=== PATIENT | female | born 1960 | race Two or more races ===

== ENCOUNTER → 2017-06-28 | Day surgery (SDC) | payer OTHER ==
[~2017-06-28] VITALS: Ht 152.4 cm; Wt 86.2 kg
[~2017-06-28] MED LIST: 0.9% Sodium Chloride 1,000 ML IV SCH; AMMO1SOL2 MC; CA C1TAB83 PO; DOCU250C2 PO; ESTR1TAB24 PO; ETOD200C4 PO; FERR325T40 PO; FLAX100038 PO; GABA-502 PO; LISI10TA PO; LOVA40TA PO; Lactated Ringer's 1,000 ML IV ONE; Lactated Ringer's 1,000 ML IV SCH; METR55GE TOP; MULT-1065 PO; MetoCLOpramide 5 mg/mL 2 mL Inj IVPUSH PRN; OMEG-38 PO; Ondansetron 2 mg/mL 2 mL Inj IVPUSH PRN; PROP5POW MC; QUET50TA55 PO; SERT100T9 PO; Sodium Chloride LOK Flush 10 mL Syringe IV PRN; THYR90TA PO; ZLP5T PO
[2017-06-28 12:55] VITALS: BP 160/69; PULSE 79; RESP 16; O2SAT 94
[2017-06-28] MEDS: Lactated Ringer's 1,000 ML IV ONE ×2 (14:10→14:36)
[2017-06-28 14:41] VITALS: BP 119/58; PULSE 81; RESP 16; O2SAT 97
[2017-06-28 14:49] VITALS: BP 122/65; PULSE 75; RESP 16; O2SAT 99
--- NOTE | 2017-06-28 14:49 | PCM.ANEP1 ---
Post Anesthesia PACU Phase 1 Assessment Vital Signs Vital Signs Date Time Temp Pulse Resp B/P Pulse Ox O2 Delivery O2 Flow Rate FiO2 06/28/17 14:41 81 16 119/58 97 Room Air 06/28/17 12:55 36.5 79 16 160/69 94 Room Air Anesthetic Administered: GA, MAC Level of Alertness: Awake, talking GRAVES's with Equal Strength: Yes Pain: No Nausea or Vomiting: No CV Function & Hydration Stable: Yes Airway Device: n/a Oxygen Delivery: Room Air Lungs: Clear to Auscultation, Normal Air Movement Dermatome Level: Full Sensation PACU Phase 2 Assessment Complications: No Follow up Care: N/A Patient Instructions Provided: N/A Chris Clemente MD Jun 28, 2017 14:49
--- NOTE | 2017-06-28 14:49 | PCM.HPANE ---
Patient Data Surgeon Admitting Provider: Attending Provider:Nacho Pierre MD Primary Care Physician:Physicians Suraj Singleton Other Provider:Maddi Ching Anesthesia Reason for Visit Phx Colon Polyps Ht/WT & BMI Height (Feet): 5 Height (Inches): 0 Weight (Kilograms): 86.18 Body Mass Index 37.00 Allergies Coded Allergies: codeine (Verified Allergy, Mild, 06/27/17) indomethacin (Verified Allergy, Mild, 06/27/17) oxycodone (Verified Allergy, Mild, 06/27/17) Past Anesthesia History Anesthesia History: Denies:: Abnormal Airway, Anesthesia Reactions, Difficult Intubation, Fam Anesthesia Reaction, Fam Malignant Hypertherm, Malignant Hyperthermia Diabetes History Hx Diabetes?: No MRSA MRSA: No Medications Home Meds Incl Beta Cynthia: No Reported Medications Ammonium Lactate 1 Ml Solution1 Ml MC 06/28/17 Zolpidem (Ambien)5 Mg Tablet5 Mg PO HS PRN For Insomnia Ref 0 06/28/17 Thyroid,Pork ([place] Thyroid)90 Mg Jodfsc76 Mg PO DAILY 06/28/17 Etodolac 200 Mg Whfvqre476 Mg PO BID 06/28/17 Gabapentin 300 Mg Clolmie862 Mg PO BID Ref 0 06/28/17 Estradiol 1 Mg Tablet1 Mg PO DAILY Ref 0 06/28/17 Ferrous Sulfate (Iron)325 Mg Yligjl511 Mg PO DAILY 06/27/17 Ca Carbonate/Vitamin D3/Vit K (Calcium + D Soft Chewable Tab)1 Each Tab.chew1 Each PO DAILY 06/27/17 Discontinued Reported Medications Metronidazole (Metrogel)55 Gm Gel.w.pump1 Applic TOP BID #55 GM Ref 0 06/27/17 Sertraline HCl (Sertraline)100 Mg Vbjavk587 Mg PO DAILY 30 Days Ref 0 06/27/17 Quetiapine Fumarate 50 Mg Cxyydi26 Mg PO HS Ref 0 06/27/17 Propranolol HCl 5 Gm Powder5 Gm MC DAILY 06/27/17 Lovastatin 40 Mg Elclqe72 Mg PO HS #30 TABLET Ref 0 06/27/17 Lisinopril 10 Mg Pvbqqq68 Mg PO DAILY 30 Days Ref 0 06/27/17 Flaxseed Oil ([employer]-3 Flaxseed Oil)1,000 Mg Capsule1,000 Mg PO DAILY 06/27/17 [employer]-3/Dha/Epa/Fish Oil (Fish Oil 1,000 mg Softgel)1 Each Capsule1 Each PO DAILY 06/27/17 Docusate Sodium 250 Mg Sqhmvze837 Mg PO DAILY PRN For Constipation Ref 0 06/27/17 Multivits-Min/Iron/FA/Lutein (Centrum Silver Women Tablet)8 Mg Iron-400 Mcg-300 Mcg Tablet1 Each PO DAILY 06/27/17 History History of ENT Problems?: No HEENT History: Denies:: Abnormal Airway Difficult Intubation Dysphagia Hearing Problem Denture Type: None Teeth Condition: Within Normal Limits Hx of Heart Problems?: Yes Cardiovascular History: Denies:: AICD Atrial Fibrillation Chest Pain Hypertension (high cholesterol ) Pacemaker Valvular Heart Disease Hx of Respiratory Problem?: Yes Respiratory History: Positive for:: Asthma (occ. very mild. carries rescue inhaler (seasonal) ) Denies:: COPD Cough Hemoptysis Pneumonia Tuberculosis Hx Neurologic Problems?: No Neurological History: Denies:: CVA Hx of GI Problems?: Yes Hx of Problems?: No HX of Peritoneal Dialysis: No Female Hx: Denies:: Currently (hysterectomy) Hx Musculoskeletal Problems?: No Musculoskeletal History: Denies:: Fibromyalgia Joint Replacement Hx of Psycho/Social Problems?: No Psycho Social History: Positive for:: Anxiety Hx Depression Hx Surgeries?: Yes (hysterectomy, lumpectomy bilateral, tonsillectomy, appy, hernia, cesarian) Hx Any Other Health Problems?: Yes Hx Diabetes: No Hx Alcohol Use: Yes (once in a while ) Stop/Bang Treated for Sleep Apnea?: No Do You Have a CPAP Machine?: No S-Snoring: Do You Snore Loudly: Yes T-Tired: feel tired, fatigued: No O-Obsered: Observed not breath: No P-Blood Pressure: treated: No B- Body Mass Index > 35 kg/m2: No A- Age over 50: Yes N- Neck Large Circumference: No G- Gender Male: No KORY Total Score: 2 Risk Assessment Category Category 1A: Patient has history of documented sleep apnea, and HAS NOT received any narcotic, sedative or anesthesia administration during this stay. Category 1B: Patient has history of documented sleep apnea, and HAS received any narcotic , sedative or anesthesia administration during this stay Category 2: Patient has SUSPECTED Obstructive Sleep Apnea, and HAS received any narcotic , sedative or anesthesia administration during this stay. Category 3: Patient has SUSPECTED Obstructive Sleep Apnea and HAS NOT received narcotic, sedative or anesthesia administration during this stay. Category 4: Outpatient in Procedural Areas with known sleep apnea or who screen positive for High Risk via the STOP/BANG questionnaire. Exam Exam Vital Signs Vital Signs Date Time Temp Pulse Resp B/P Pulse Ox O2 Delivery O2 Flow Rate FiO2 06/28/17 12:55 36.5 79 16 160/69 94 Room Air General Appearance: Alert, Oriented X3, Cooperative, No Acute Distress HEENT/AIRWAY: MP 2, Neck Movement (FROM), Mouth Opening (3 FBMO) Lungs: Clear to Auscultation, Normal Air Movement Heart: Exam Unremarkable, Regular Rate/Rhythm, No Murmurs/Rubs/Gallops Plan Impression Patient chart reviewed, patient interviewed and anesthestic plan with risks, benefits, and alternatives discussed, and informed consent obtained. NPO per Anesth. Guidelines: Yes ASA Physical Status: ASA2 Mod Systemic Disease Anesthetic Plan: GA, MAC Bene/Risks/Altern/Consents: Yes HP Complete Prior to Induction: Yes Chris Clemente MD Jun 28, 2017 13:40
--- NOTE | 2017-06-28 15:30 | ENDO ---
[address] [address] ENDOSCOPY PROCEDURE PATIENT: SIRIA MARCELINO : 1960 MR#: [id number] ADMIT: 06/28/2017 JOB ID: [id number] DATE: 06/28/2017 PREPROCEDURE DIAGNOSIS: Personal history of colon polyps, pelvic floor prolapse. POSTPROCEDURE DIAGNOSIS: 1. Personal history of colon polyps, pelvic floor prolapse. 2. Rectal polyps. PROCEDURE: Colonoscopy with biopsies. ENDOSCOPIST: Dr. Nacho Pierre MEDICATIONS: See the anesthesia record. INDICATIONS: The patient is a 57-year-old woman who underwent prior colonoscopy in 2013 at the [facility], at which time, she was found to have a single sessile polyp in the rectum which was removed. She also had some limited diverticula in the sigmoid colon. She has complained of pelvic floor prolapse including cystocele and vaginal prolapse and has seen a colorectal surgeon at the [facility], and was told to wait as long as possible before undergoing pelvic floor reconstruction. After discussion of risks and benefits, she agreed to proceed with colonoscopy. FINDINGS: She had markedly diminished rectal tone but no prolapse. She had limited sigmoid diverticula. There were three fairly small flat polyps in the rectum which were removed with cold forceps and sent for permanent pathology. DESCRIPTION OF PROCEDURE: Procedural sedation was achieved. She was connected to hemodynamic monitoring, pulse oximetry, capnography. Digital rectal examination revealed markedly diminished sphincter tone. The PCF H 180 AL colonoscope was inserted and advanced under visualization until the ileocecal valve and appendiceal orifice were visualized and photo documented. The scope was then withdrawn and carefully retroflexed in the rectum. The quality of the prep was good. In the sigmoid colon, she had a few scattered diverticula. In the rectum, there were a total of three flat polyps measuring 4-5 mm in diameter which were removed with cold forceps and sent for permanent histopathology. Retroflexion revealed some internal hemorrhoids but no other abnormalities. The scope was withdrawn and the procedure terminated. She tolerated the procedure well. RECOMMENDATIONS: A letter with biopsy results will be mailed to the patient, depending on findings, either three or five year followup colonoscopy will be recommended. She is interested in pelvic floor evaluation and I recommended referral to Dr. Damari Li for urodynamic testing.
--- NOTE | 2017-07-05 14:42 | PATH ---
SURGICAL PATHOLOGY Attending Physician:Ruben Rojas CASE STATUS: Signed Out PATIENT NAME: SIRIA MARCELINO PID: [id number] : 1960 DATE COLLECTED:06/28/2017 00:00 SPECIMEN: Rectum, Biopsy CLINICAL HISTORY: 1). RECTAL POLYPS X 3 FINAL DIAGNOSIS: Rectum, Polyps, Biopsies: Hyperplastic polyps. ICD10: K62.1 GROSS DESCRIPTION: The specimen is received in one formalin filled container labeled with the patient's name, sublabeled "rectal polyps X3" and consists of are 4 portions of tissue which aggregate to 0.2 x 0.2 x 0.2 CM. The specimen is entirely submitted in one cassette. 06/29/2017DC ICD-9 CODES: CPT CODES: 1: 13705 Electronically Signed Out Sonal Cain MD [facility], [place] [address] Technical component performed at [facility], [address] [place] [address] Ave[address], [address]
== END | disposition home or self-care (01) ==
LOC: END 00:21
PROVIDERS: ATTEND Student in an Organized Health Care Education/Training Program
DX: Z12.11 Encounter for screening for malignant neoplasm of colon (principal); K62.1 Rectal polyp; K62.3 Rectal prolapse; Z86.010 Personal history of colon polyps; F32.9 Major depressive disorder, single episode, unspecified; K64.8 Other hemorrhoids
CPT/HCPCS: 45380; J7120